=== PATIENT | female | born 1935 | race Caucasian/White ===

== ENCOUNTER 2019-10-03 13:06 | Inpatient (IN) ==
[2019-10-03] MEDS ORDERED: ACETAMINOPHEN 325 MG TABLET PO PRN (13:10)
[2019-10-03] MEDS ORDERED: LACTULOSE 20 GM/30 ML UDCUP PO PRN (13:10)
[2019-10-03] MEDS ORDERED: POTASSIUM CHLORIDE 20 MEQ TABLET PO PRN (13:10)
[2019-10-03] MEDS ORDERED: ONDANSETRON 4 MG/2 ML VIAL IV PRN (13:10)
[2019-10-03] MEDS ORDERED: ZALEPLON 5 MG CAPSULE PO PRN (13:10)
[2019-10-03] MEDS ORDERED: MORPHINE 4 MG/1 ML VIAL IV PRN (13:10)
[2019-10-03] MEDS ORDERED: MAGNESIUM SULF RIDER 4 GM in PREMIX 1 EACH IV PRN (13:10)
[2019-10-03] MEDS ORDERED: BISACODYL 5 MG TABLET PO PRN (13:10)
[2019-10-03] MEDS ORDERED: MAGNESIUM SULF RIDER 2 GM in PREMIX 1 EACH IV PRN (13:10)
[2019-10-03] MEDS ORDERED: SPIRONOLACTONE 25 MG TABLET PO SCH (15:00)
[2019-10-03 15:30] LABS: Basophils % 0.6 % (0.0-0.8); Eosinophils # 0.2 10*3/uL (0.0-0.87); Eosinophils % 3.1 % (0.00-10.9); Hematocrit 34.4 VOL% (35.7-47.0); Hemoglobin 11.3 GM/DL (12.0-16.0); Immature Granulocytes % 0.3 %; Immature Granulocytes Absolute 0.02 #; Lymphocytes # 0.8 10*3/uL (1.4-4.0); Lymphocytes % 11.6 % (21.3-54.2); Mean Corpuscular HGB Conc 32.8 GM/DL (32-36); Mean Corpuscular Volume 87.1 FL (87-102); Mean Platelet Volume 10.9 FL (9.6-12.0); Monocytes % 8.4 % (1.7-12.7); Platelet Count 161 T/CUMM (130-400); Red Blood Count 3.95 MC/CUMM (3.8-5.5); Red Cell Distribution Width 13.7 % (9.3-17.3); White Blood Count 6.8 T/CUMM (4-12)
[2019-10-03] MEDS ORDERED: ENOXAPARIN 40 MG/0.4 ML SYRINGE SUBCUT SCH (15:30)
[2019-10-03] MEDS ORDERED: FUROSEMIDE 40 MG/4 ML VIAL IV SCH (16:00)
[2019-10-03 16:01] LABS: Albumin 3.7 G/DL (3.4-5.0); Bilirubin,Total 0.6 MG/DL (0.2-1.0); Calcium 9.8 MG/DL (8.5-10.1); Osmolality,Calculated 294.7 MOS/KG (273-304); Thyroid Stimulating Hormone 2.68 uIU/ml (0.358-3.74); Total Protein 7.7 G/DL (6.4-8.3)
[2019-10-03 16:03] LABS: Troponin I 0.018 NG/ML (0.00-0.045)
[2019-10-03] MEDS: CARBIDOPA/LEVODOPA 10-100 MG TABLET PO SCH ×2 (16:55→21:09)
[2019-10-03] MEDS ORDERED: CARBIDOPA/LEVODOPA 10-100 MG TABLET PO SCH (17:00)
[2019-10-03 17:58] LABS: Troponin I 0.024 NG/ML (0.00-0.045)
[2019-10-03] MEDS: MEMANTINE 5 MG TABLET PO SCH (18:48)
[2019-10-03 19:23] LABS: Troponin I 0.022 NG/ML (0.00-0.045)
[2019-10-03] MEDS: ASPIRIN EC 81 MG TABLET PO SCH (21:10)
[2019-10-03] MEDS: guaiFENesin/DM ER 600-30 MG TABLET PO PRN (21:10)
[2019-10-03] MEDS: MAGNESIUM OXIDE 400 MG TABLET PO SCH (21:10)
[2019-10-03] MEDS: OXcarbazepine 300 MG TABLET PO SCH (21:10)
[2019-10-03] MEDS: POTASSIUM CHLORIDE 20 MEQ TABLET PO SCH (21:10)
[2019-10-04 01:53] LABS: Apearance,Urine Slightly Hazy (Clear); Bacteria,Urine Occasional /HPF (Few); Bilirubin,Urine Negative (Negative); Blood, Urine Negative (Negative); Glucose,Urine (UA) Negative (Negative); Hyaline Casts,Urine 6 /LPF (0-3); Ketones,Urine Negative (Negative); Nitrite,Urine Negative (Negative); Protein,Urine Negative; RBC,Urine 1 /HPF (0-4); Squamous Epithelial Cell,Urine Few /HPF (0-10); Urine Color Yellow (Yellow); Urine Specific Gravity 1.013 (1.001-1.035); Urine Urobilinogen < 2.0 EU/DL (0.2-1.0); WBC,Urine 34 /HPF (0-6)
[2019-10-04 04:44] LABS: Basophils % 0.6 % (0.0-0.8); Eosinophils # 0.2 10*3/uL (0.0-0.87); Eosinophils % 3.2 % (0.00-10.9); Hematocrit 30.4 VOL% (35.7-47.0); Hemoglobin 9.9 GM/DL (12.0-16.0); Immature Granulocytes % 0.4 %; Immature Granulocytes Absolute 0.02 #; Lymphocytes # 0.8 10*3/uL (1.4-4.0); Lymphocytes % 15.2 % (21.3-54.2); Mean Corpuscular HGB Conc 32.6 GM/DL (32-36); Mean Corpuscular Volume 87.1 FL (87-102); Neutrophils % 70.6 % (38.7-73.9); Platelet Count 131 T/CUMM (130-400); Red Blood Count 3.49 MC/CUMM (3.8-5.5); Red Cell Distribution Width 13.7 % (9.3-17.3); White Blood Count 5.4 T/CUMM (4-12)
[2019-10-04 05:17] LABS: Osmolality,Calculated 298.5 MOS/KG (273-304); Risk Ratio 2.89; VLDL CHOLESTEROL 22.4 MG/DL
[2019-10-04 07:10] LABS: % Iron Saturation 13.2 % (18-50); Ferritin 19.6 ng/ml (8-252)
[2019-10-04] MEDS ORDERED: ACETAMINOPHEN 500 MG TABLET PO PRN (08:43)
[2019-10-04] MEDS ORDERED: hydrALAZINE 20 MG/1 ML VIAL IV PRN (08:45)
[2019-10-04] MEDS: PANTOPRAZOLE 40 MG TABLET PO SCH (09:49)
[2019-10-04] MEDS: POTASSIUM CHLORIDE 20 MEQ TABLET PO SCH ×2 (09:51→21:18)
[2019-10-04] MEDS: carvediloL 12.5 MG TABLET PO SCH ×2 (09:51→21:19)
[2019-10-04] MEDS: MAGNESIUM OXIDE 400 MG TABLET PO SCH ×2 (09:51→21:18)
[2019-10-04] MEDS: CARBIDOPA/LEVODOPA 10-100 MG TABLET PO SCH ×4 (09:52→21:22)
[2019-10-04] MEDS: DONEPEZIL 5 MG TABLET PO SCH ×2 (09:52→21:17)
[2019-10-04] MEDS: azaTHIOprine 50 MG TABLET PO SCH (09:52)
[2019-10-04] MEDS: OXcarbazepine 300 MG TABLET PO SCH ×2 (09:52→21:18)
[2019-10-04] MEDS: MINOXIDIL 10 MG TABLET PO SCH (11:50)
[2019-10-04] MEDS: ENOXAPARIN 30 MG/0.3 ML SYRINGE SUBCUT SCH (16:11)
[2019-10-04] MEDS: MEMANTINE 5 MG TABLET PO SCH (16:12)
[2019-10-04] MEDS ORDERED: amLODIPine 5 MG TABLET PO SCH (21:00)
[2019-10-04] MEDS: ASPIRIN EC 81 MG TABLET PO SCH (21:17)
[2019-10-04] MEDS: INSULIN GLARGINE 100 UNIT/ML SUBCUT SCH (21:24)
[2019-10-04] MEDS: TERAZOSIN 5 MG CAPSULE PO SCH (21:27)
[2019-10-05 06:06] LABS: Basophils # 0.1 10*3/uL (0.0-0.2); Basophils % 1.2 % (0.0-0.8); Eosinophils # 0.1 10*3/uL (0.0-0.87); Eosinophils % 3.4 % (0.00-10.9); Hematocrit 29.9 VOL% (35.7-47.0); Hemoglobin 9.5 GM/DL (12.0-16.0); Immature Granulocytes % 0.5 %; Immature Granulocytes Absolute 0.02 #; Lymphocytes # 0.8 10*3/uL (1.4-4.0); Lymphocytes % 19.8 % (21.3-54.2); Mean Corpuscular HGB Conc 31.8 GM/DL (32-36); Mean Corpuscular Volume 87.9 FL (87-102); Monocytes % 11.8 % (1.7-12.7); Neutrophils % 63.3 % (38.7-73.9); Platelet Count 128 T/CUMM (130-400); Red Cell Distribution Width 13.7 % (9.3-17.3); White Blood Count 4.1 T/CUMM (4-12)
[2019-10-05 06:32] LABS: Calcium 9.3 MG/DL (8.5-10.1); Osmolality,Calculated 298.1 MOS/KG (273-304)
[2019-10-05] MEDS: MAGNESIUM OXIDE 400 MG TABLET PO SCH ×2 (09:10→21:20)
[2019-10-05] MEDS: POTASSIUM CHLORIDE 20 MEQ TABLET PO SCH ×2 (09:10→21:20)
[2019-10-05] MEDS: guaiFENesin/DM ER 600-30 MG TABLET PO PRN (09:10)
[2019-10-05] MEDS: DONEPEZIL 5 MG TABLET PO SCH ×2 (09:11→21:19)
[2019-10-05] MEDS: CARBIDOPA/LEVODOPA 10-100 MG TABLET PO SCH ×4 (09:11→21:20)
[2019-10-05] MEDS: OXcarbazepine 300 MG TABLET PO SCH ×2 (09:11→21:20)
[2019-10-05] MEDS: PANTOPRAZOLE 40 MG TABLET PO SCH (09:11)
[2019-10-05] MEDS: carvediloL 12.5 MG TABLET PO SCH ×2 (09:11→21:20)
[2019-10-05] MEDS: azaTHIOprine 50 MG TABLET PO SCH (09:15)
[2019-10-05] MEDS: MINOXIDIL 10 MG TABLET PO SCH (11:55)
[2019-10-05] MEDS: MEMANTINE 5 MG TABLET PO SCH (16:54)
[2019-10-05] MEDS: ENOXAPARIN 30 MG/0.3 ML SYRINGE SUBCUT SCH (16:55)
[2019-10-05] MEDS: ASPIRIN EC 81 MG TABLET PO SCH (21:19)
[2019-10-05] MEDS: INSULIN GLARGINE 100 UNIT/ML SUBCUT SCH (21:20)
[2019-10-05] MEDS: TERAZOSIN 5 MG CAPSULE PO SCH (21:21)
[2019-10-06 04:32] LABS: Eosinophils # 0.2 10*3/uL (0.0-0.87); Eosinophils % 3.9 % (0.00-10.9); Hematocrit 29.6 VOL% (35.7-47.0); Hemoglobin 9.6 GM/DL (12.0-16.0); Immature Granulocytes % 0.5 %; Immature Granulocytes Absolute 0.02 #; Lymphocytes # 0.8 10*3/uL (1.4-4.0); Lymphocytes % 20.4 % (21.3-54.2); Mean Corpuscular HGB Conc 32.4 GM/DL (32-36); Mean Corpuscular Volume 87.8 FL (87-102); Mean Platelet Volume 11.3 FL (9.6-12.0); Monocytes % 10.9 % (1.7-12.7); Neutrophils % 63.3 % (38.7-73.9); Platelet Count 125 T/CUMM (130-400); Red Blood Count 3.37 MC/CUMM (3.8-5.5); Red Cell Distribution Width 13.6 % (9.3-17.3); White Blood Count 4.1 T/CUMM (4-12)
[2019-10-06 04:51] LABS: Calcium 9.3 MG/DL (8.5-10.1); Osmolality,Calculated 297.1 MOS/KG (273-304)
[2019-10-06 07:02] LABS: Eosinophils 1 % (0-10); Lymphocytes 32 % (20-55); Platelet Estimate Decreased; Segmented Neutrophils 58 % (50-85); Total Cells Counted 100
[2019-10-06] MEDS: CARBIDOPA/LEVODOPA 10-100 MG TABLET PO SCH ×4 (08:24→20:57)
[2019-10-06] MEDS: DONEPEZIL 5 MG TABLET PO SCH ×2 (08:24→20:57)
[2019-10-06] MEDS: guaiFENesin/DM ER 600-30 MG TABLET PO PRN (08:24)
[2019-10-06] MEDS: POTASSIUM CHLORIDE 20 MEQ TABLET PO SCH ×2 (08:24→20:57)
[2019-10-06] MEDS: azaTHIOprine 50 MG TABLET PO SCH (08:25)
[2019-10-06] MEDS: MAGNESIUM OXIDE 400 MG TABLET PO SCH ×2 (08:25→20:57)
[2019-10-06] MEDS: carvediloL 12.5 MG TABLET PO SCH ×2 (08:25→20:57)
[2019-10-06] MEDS: PANTOPRAZOLE 40 MG TABLET PO SCH (08:25)
[2019-10-06] MEDS: OXcarbazepine 300 MG TABLET PO SCH ×2 (08:25→20:57)
[2019-10-06] MEDS ORDERED: cloNIDine 0.1 MG/24 HR PATCH TRANSDERM SCH ×2 (10:19→11:00)
[2019-10-06] MEDS: amLODIPine 5 MG TABLET PO SCH (10:39)
[2019-10-06] MEDS: MINOXIDIL 10 MG TABLET PO SCH (13:27)
[2019-10-06] MEDS: MEMANTINE 5 MG TABLET PO SCH (16:46)
[2019-10-06] MEDS: ENOXAPARIN 30 MG/0.3 ML SYRINGE SUBCUT SCH (16:47)
[2019-10-06] MEDS: ASPIRIN EC 81 MG TABLET PO SCH (20:57)
[2019-10-06] MEDS: TERAZOSIN 5 MG CAPSULE PO SCH (20:58)
[2019-10-06] MEDS: INSULIN GLARGINE 100 UNIT/ML SUBCUT SCH (21:15)
[2019-10-07 05:11] LABS: Basophils % 0.7 % (0.0-0.8); Eosinophils # 0.2 10*3/uL (0.0-0.87); Eosinophils % 2.7 % (0.00-10.9); Hematocrit 32.5 VOL% (35.7-47.0); Hemoglobin 10.3 GM/DL (12.0-16.0); Immature Granulocytes % 0.3 %; Immature Granulocytes Absolute 0.02 #; Lymphocytes # 0.8 10*3/uL (1.4-4.0); Mean Corpuscular HGB Conc 31.7 GM/DL (32-36); Mean Corpuscular Volume 89.8 FL (87-102); Mean Platelet Volume 10.8 FL (9.6-12.0); Monocytes % 9.9 % (1.7-12.7); Neutrophils % 73.4 % (38.7-73.9); Platelet Count 142 T/CUMM (130-400); Red Blood Count 3.62 MC/CUMM (3.8-5.5); Red Cell Distribution Width 13.9 % (9.3-17.3); White Blood Count 5.8 T/CUMM (4-12)
[2019-10-07 05:35] LABS: Calcium 10.2 MG/DL (8.5-10.1); Osmolality,Calculated 293.3 MOS/KG (273-304)
[2019-10-07] MEDS: SODIUM CHLORIDE 0.9% 1,000 ML IV SCH ×2 (06:00→17:07)
[2019-10-07] MEDS ORDERED: ASPIRIN 325 MG TABLET PO ONE (06:00)
[2019-10-07] MEDS ORDERED: diphenhydrAMINE CAP 25 MG CAPSULE PO ONE (06:00)
[2019-10-07] MEDS ORDERED: DIAZEPAM 5 MG TABLET PO ONE (06:00)
[2019-10-07] MEDS: PANTOPRAZOLE 40 MG TABLET PO SCH ×2 (07:37→08:04)
[2019-10-07] MEDS: carvediloL 12.5 MG TABLET PO SCH ×2 (07:37→08:04)
[2019-10-07] MEDS: amLODIPine 5 MG TABLET PO SCH ×2 (07:37→08:04)
[2019-10-07] MEDS ORDERED: HEPARIN/NACL 0.9% 2 UNITS/ML 1,000 ML IV ONE (07:50)
[2019-10-07] MEDS ORDERED: LIDOCAINE 1% 20 ML VIAL ONE (07:52)
[2019-10-07] MEDS ORDERED: fentaNYL 100 MCG/2 ML VIAL ONE (07:55)
[2019-10-07] MEDS ORDERED: MIDAZOLAM 2 MG/2 ML VIAL ONE (07:55)
[2019-10-07] MEDS: DONEPEZIL 5 MG TABLET PO SCH ×2 (08:03→21:25)
[2019-10-07] MEDS: CARBIDOPA/LEVODOPA 10-100 MG TABLET PO SCH ×4 (08:03→21:25)
[2019-10-07] MEDS: MAGNESIUM OXIDE 400 MG TABLET PO SCH ×2 (08:04→21:25)
[2019-10-07] MEDS: azaTHIOprine 50 MG TABLET PO SCH (08:04)
[2019-10-07] MEDS: POTASSIUM CHLORIDE 20 MEQ TABLET PO SCH ×2 (08:04→21:24)
[2019-10-07] MEDS: OXcarbazepine 300 MG TABLET PO SCH ×2 (08:04→21:25)
[2019-10-07] MEDS ORDERED: HEPARIN 5,000 UNIT/1 ML VIAL ONE (08:31)
[2019-10-07] MEDS ORDERED: NITROGLYCERIN DRIP 50 MG/250 ML BOTTLE IV ONE (08:50)
[2019-10-07] MEDS ORDERED: TICAGRELOR 90 MG TABLET ONE (09:17)
[2019-10-07] MEDS: MINOXIDIL 10 MG TABLET PO SCH (17:05)
[2019-10-07] MEDS: NEBIVOLOL 5 MG TABLET PO SCH (17:06)
[2019-10-07] MEDS: ISOSORBIDE MONONITRATE 30 MG TABLET PO SCH (17:06)
[2019-10-07] MEDS: MEMANTINE 5 MG TABLET PO SCH (17:06)
[2019-10-07] MEDS: TICAGRELOR 90 MG TABLET PO SCH (21:25)
[2019-10-07] MEDS: ASPIRIN EC 81 MG TABLET PO SCH (21:25)
[2019-10-07] MEDS: INSULIN GLARGINE 100 UNIT/ML SUBCUT SCH (21:25)
[2019-10-07] MEDS: TERAZOSIN 5 MG CAPSULE PO SCH (21:27)
[2019-10-08] MEDS: SODIUM CHLORIDE 0.9% 1,000 ML IV SCH (03:09)
[2019-10-08 04:02] LABS: Basophils % 0.5 % (0.0-0.8); Eosinophils # 0.2 10*3/uL (0.0-0.87); Eosinophils % 3.9 % (0.00-10.9); Hematocrit 26.5 VOL% (35.7-47.0); Hemoglobin 8.5 GM/DL (12.0-16.0); Immature Granulocytes % 0.5 %; Immature Granulocytes Absolute 0.03 #; Lymphocytes # 0.7 10*3/uL (1.4-4.0); Mean Corpuscular HGB Conc 32.1 GM/DL (32-36); Mean Corpuscular Volume 89.5 FL (87-102); Mean Platelet Volume 10.8 FL (9.6-12.0); Monocytes % 11.1 % (1.7-12.7); Platelet Count 126 T/CUMM (130-400); Red Blood Count 2.96 MC/CUMM (3.8-5.5); Red Cell Distribution Width 13.8 % (9.3-17.3); White Blood Count 5.6 T/CUMM (4-12)
[2019-10-08 04:25] LABS: Calcium 9.4 MG/DL (8.5-10.1)
[2019-10-08] MEDS: ISOSORBIDE MONONITRATE 30 MG TABLET PO SCH (08:28)
[2019-10-08] MEDS: MAGNESIUM OXIDE 400 MG TABLET PO SCH ×2 (08:28→21:07)
[2019-10-08] MEDS: TICAGRELOR 90 MG TABLET PO SCH ×2 (08:29→21:07)
[2019-10-08] MEDS: DONEPEZIL 5 MG TABLET PO SCH ×2 (08:29→21:08)
[2019-10-08] MEDS: CARBIDOPA/LEVODOPA 10-100 MG TABLET PO SCH ×4 (08:29→21:07)
[2019-10-08] MEDS: OXcarbazepine 300 MG TABLET PO SCH ×2 (08:30→21:07)
[2019-10-08] MEDS: PANTOPRAZOLE 40 MG TABLET PO SCH (08:30)
[2019-10-08] MEDS: POTASSIUM CHLORIDE 20 MEQ TABLET PO SCH ×2 (08:30→21:07)
[2019-10-08] MEDS: NEBIVOLOL 5 MG TABLET PO SCH (08:30)
[2019-10-08] MEDS: azaTHIOprine 50 MG TABLET PO SCH (09:01)
[2019-10-08] MEDS ORDERED: TUBERCULIN SKIN TEST 0.1 ML SYRINGE INTRADERM ONE (12:00)
[2019-10-08] MEDS: MINOXIDIL 10 MG TABLET PO SCH (12:10)
[2019-10-08] MEDS: MEMANTINE 5 MG TABLET PO SCH (16:36)
[2019-10-08] MEDS: ASPIRIN EC 81 MG TABLET PO SCH (21:07)
[2019-10-08] MEDS: TERAZOSIN 5 MG CAPSULE PO SCH (21:08)
[2019-10-08] MEDS: INSULIN GLARGINE 100 UNIT/ML SUBCUT SCH (21:08)
[2019-10-09 04:20] LABS: Basophils % 0.6 % (0.0-0.8); Eosinophils # 0.1 10*3/uL (0.0-0.87); Hematocrit 25.7 VOL% (35.7-47.0); Hemoglobin 8.3 GM/DL (12.0-16.0); Immature Granulocytes % 0.4 %; Immature Granulocytes Absolute 0.02 #; Lymphocytes # 0.7 10*3/uL (1.4-4.0); Lymphocytes % 14.5 % (21.3-54.2); Mean Corpuscular HGB Conc 32.3 GM/DL (32-36); Mean Corpuscular Volume 88.9 FL (87-102); Mean Platelet Volume 10.7 FL (9.6-12.0); Monocytes % 13.4 % (1.7-12.7); Neutrophils % 68.1 % (38.7-73.9); Platelet Count 115 T/CUMM (130-400); Red Blood Count 2.89 MC/CUMM (3.8-5.5); Red Cell Distribution Width 13.8 % (9.3-17.3); White Blood Count 4.6 T/CUMM (4-12)
[2019-10-09 04:38] LABS: Calcium 9.4 MG/DL (8.5-10.1); Osmolality,Calculated 291.4 MOS/KG (273-304)
[2019-10-09] MEDS: DONEPEZIL 5 MG TABLET PO SCH ×2 (08:41→21:34)
[2019-10-09] MEDS: POTASSIUM CHLORIDE 20 MEQ TABLET PO SCH ×2 (08:41→21:29)
[2019-10-09] MEDS: OXcarbazepine 300 MG TABLET PO SCH ×2 (08:41→21:30)
[2019-10-09] MEDS: ISOSORBIDE MONONITRATE 30 MG TABLET PO SCH (08:41)
[2019-10-09] MEDS: NEBIVOLOL 5 MG TABLET PO SCH (08:41)
[2019-10-09] MEDS: PANTOPRAZOLE 40 MG TABLET PO SCH (08:41)
[2019-10-09] MEDS: MAGNESIUM OXIDE 400 MG TABLET PO SCH ×2 (08:41→21:36)
[2019-10-09] MEDS: TICAGRELOR 90 MG TABLET PO SCH ×2 (08:41→21:28)
[2019-10-09] MEDS: azaTHIOprine 50 MG TABLET PO SCH (08:42)
[2019-10-09] MEDS: CARBIDOPA/LEVODOPA 10-100 MG TABLET PO SCH ×4 (08:42→21:29)
[2019-10-09] MEDS: guaiFENesin/DM ER 600-30 MG TABLET PO PRN (08:44)
[2019-10-09] MEDS ORDERED: NEBIVOLOL 5 MG TABLET PO SCH (09:57)
[2019-10-09] MEDS ORDERED: SODIUM CHLORIDE 0.9% 1,000 ML IV PRN (09:59)
[2019-10-09] MEDS ORDERED: diphenhydrAMINE CAP 25 MG CAPSULE PO PRN (09:59)
[2019-10-09] MEDS ORDERED: FUROSEMIDE 40 MG/4 ML VIAL IV ONE ×2 (10:01→15:01)
[2019-10-09] MEDS: MINOXIDIL 10 MG TABLET PO SCH (12:29)
[2019-10-09] MEDS: ALBUTEROL 0.63 MG/3 ML NEB RESP TX SCH ×2 (13:33→19:16)
[2019-10-09] MEDS: MEMANTINE 5 MG TABLET PO SCH (17:38)
[2019-10-09 20:12] LABS: Hematocrit 31.3 VOL% (35.7-47.0); Hemoglobin 10.1 GM/DL (12.0-16.0)
[2019-10-09] MEDS: ASPIRIN EC 81 MG TABLET PO SCH (21:30)
[2019-10-09] MEDS: TERAZOSIN 5 MG CAPSULE PO SCH (21:32)
[2019-10-09] MEDS: INSULIN GLARGINE 100 UNIT/ML SUBCUT SCH (22:00)
[2019-10-10] MEDS: ALBUTEROL 0.63 MG/3 ML NEB RESP TX SCH ×4 (00:23→20:48)
[2019-10-10 05:34] LABS: Basophils % 0.4 % (0.0-0.8); Eosinophils # 0.2 10*3/uL (0.0-0.87); Eosinophils % 3.7 % (0.00-10.9); Hematocrit 30.4 VOL% (35.7-47.0); Hemoglobin 9.8 GM/DL (12.0-16.0); Immature Granulocytes % 0.9 %; Immature Granulocytes Absolute 0.04 #; Lymphocytes # 0.6 10*3/uL (1.4-4.0); Mean Corpuscular HGB Conc 32.2 GM/DL (32-36); Mean Corpuscular Volume 88.9 FL (87-102); Mean Platelet Volume 10.9 FL (9.6-12.0); Monocytes % 11.1 % (1.7-12.7); Neutrophils % 70.9 % (38.7-73.9); Platelet Count 118 T/CUMM (130-400); Red Blood Count 3.42 MC/CUMM (3.8-5.5); Red Cell Distribution Width 13.9 % (9.3-17.3); White Blood Count 4.6 T/CUMM (4-12)
[2019-10-10 05:51] LABS: Calcium 9.7 MG/DL (8.5-10.1); Osmolality,Calculated 292.3 MOS/KG (273-304)
[2019-10-10] MEDS ORDERED: metOLazone 5 MG TABLET PO SCH (09:30)
[2019-10-10] MEDS: CARBIDOPA/LEVODOPA 10-100 MG TABLET PO SCH ×4 (10:04→21:10)
[2019-10-10] MEDS: OXcarbazepine 300 MG TABLET PO SCH ×2 (10:05→21:09)
[2019-10-10] MEDS: DONEPEZIL 5 MG TABLET PO SCH ×2 (10:05→21:10)
[2019-10-10] MEDS: azaTHIOprine 50 MG TABLET PO SCH (10:05)
[2019-10-10] MEDS: POTASSIUM CHLORIDE 20 MEQ TABLET PO SCH ×2 (10:05→21:10)
[2019-10-10] MEDS: ISOSORBIDE MONONITRATE 30 MG TABLET PO SCH (10:06)
[2019-10-10] MEDS: TICAGRELOR 90 MG TABLET PO SCH ×2 (10:06→21:09)
[2019-10-10] MEDS: PANTOPRAZOLE 40 MG TABLET PO SCH (10:06)
[2019-10-10] MEDS: MAGNESIUM OXIDE 400 MG TABLET PO SCH ×2 (10:06→21:00)
[2019-10-10] MEDS ORDERED: NEBIVOLOL 10 MG TABLET PO ONE (10:30)
[2019-10-10] MEDS: FUROSEMIDE 40 MG/4 ML VIAL IV SCH ×2 (10:37→16:10)
[2019-10-10] MEDS: MINOXIDIL 10 MG TABLET PO SCH (11:57)
[2019-10-10] MEDS ORDERED: ATORVASTATIN 40 MG TABLET PO SCH ×2 (14:00→21:00)
[2019-10-10] MEDS: MEMANTINE 5 MG TABLET PO SCH (16:10)
[2019-10-10] MEDS: TERAZOSIN 5 MG CAPSULE PO SCH (21:09)
[2019-10-10] MEDS: ASPIRIN EC 81 MG TABLET PO SCH (21:10)
[2019-10-10] MEDS: INSULIN GLARGINE 100 UNIT/ML SUBCUT SCH (21:10)
[2019-10-11] MEDS: ALBUTEROL 0.63 MG/3 ML NEB RESP TX SCH ×2 (02:15→07:49)
[2019-10-11 08:11] LABS: Basophils % 0.7 % (0.0-0.8); Eosinophils # 0.2 10*3/uL (0.0-0.87); Eosinophils % 3.8 % (0.00-10.9); Hematocrit 32.3 VOL% (35.7-47.0); Hemoglobin 10.4 GM/DL (12.0-16.0); Immature Granulocytes % 0.7 %; Immature Granulocytes Absolute 0.04 #; Lymphocytes # 0.5 10*3/uL (1.4-4.0); Lymphocytes % 9.3 % (21.3-54.2); Mean Corpuscular HGB Conc 32.2 GM/DL (32-36); Mean Corpuscular Volume 88.5 FL (87-102); Mean Platelet Volume 10.4 FL (9.6-12.0); Monocytes % 9.1 % (1.7-12.7); Neutrophils % 76.4 % (38.7-73.9); Platelet Count 138 T/CUMM (130-400); Red Blood Count 3.65 MC/CUMM (3.8-5.5); Red Cell Distribution Width 13.8 % (9.3-17.3); White Blood Count 5.8 T/CUMM (4-12)
[2019-10-11 08:26] LABS: Osmolality,Calculated 289.4 MOS/KG (273-304)
[2019-10-11] MEDS ORDERED: cloNIDine 0.1 MG/24 HR PATCH TRANSDERM SCH (09:00)
[2019-10-11] MEDS ORDERED: NEBIVOLOL 10 MG TABLET PO SCH (09:00)
[2019-10-11] MEDS ORDERED: FUROSEMIDE 40 MG TABLET PO SCH (09:00)
[2019-10-11] MEDS: DONEPEZIL 5 MG TABLET PO SCH (09:39)
[2019-10-11] MEDS: OXcarbazepine 300 MG TABLET PO SCH (09:40)
[2019-10-11] MEDS: PANTOPRAZOLE 40 MG TABLET PO SCH (09:40)
[2019-10-11] MEDS: POTASSIUM CHLORIDE 20 MEQ TABLET PO SCH (09:40)
[2019-10-11] MEDS: TICAGRELOR 90 MG TABLET PO SCH (09:40)
[2019-10-11] MEDS: ISOSORBIDE MONONITRATE 30 MG TABLET PO SCH (09:40)
[2019-10-11] MEDS: azaTHIOprine 50 MG TABLET PO SCH (09:40)
[2019-10-11] MEDS: MAGNESIUM OXIDE 400 MG TABLET PO SCH (09:40)
[2019-10-11] MEDS: CARBIDOPA/LEVODOPA 10-100 MG TABLET PO SCH ×2 (09:41→12:40)
[2019-10-11 11:56] VITALS: BP 182/58
[2019-10-11] MEDS: MINOXIDIL 10 MG TABLET PO SCH (12:40)
[2019-10-11] MEDS ORDERED: INFLUENZA VIRUS VACCINE 0.5 ML SYRINGE IM ONE (13:06)
[2019-10-11] MEDS ORDERED: PNEUMOCOCCAL VACCINE (13 VALENT) 0.5 ML SYRINGE IM ONE (13:06)
== END 2019-10-11 14:19 | disposition swing bed (61) | DRG 247 ==
LOC: N.TELES
PROVIDERS: ADMIT Internal Medicine Cardiovascular Disease; ATTEND Internal Medicine Cardiovascular Disease
PROC: CLCCHCL (ICD-10-PCS; 2019-10-07 08:45)